=== PATIENT | female | born 1965 | race Native Hawaiian/Other Pacific Islander ===

== ENCOUNTER 2021-07-05 10:56 | Outpatient (CLI) | payer OTHER | END 2021-07-05 19:03 | disposition home or self-care (01) | LOC: CT 10:56 | PROVIDERS: ATTEND Orthopaedic Surgery | DX: M25.572 Pain in left ankle and joints of left foot (principal); M25.511 Pain in right shoulder; M75.41 Impingement syndrome of right shoulder; S82.842G Displaced bimalleolar fracture of left lower leg, subsequent encounter for closed fracture with delayed healing; M75.121 Complete rotator cuff tear or rupture of right shoulder, not specified as traumatic; R29.898 Other symptoms and signs involving the musculoskeletal system ==